=== PATIENT | male | born 1995 | race Caucasian/White ===

== ENCOUNTER 2022-05-23 14:34 | Emergency (ER) | payer OTHER, SELFPAY ==
[2022-05-23 14:35] VITALS: BP 149/82; PULSE 75; RESP 18; TEMP 36.7; O2SAT 98; BMI 26.8
[2022-05-23] MEDS: diazePAM 5 MG Tablet PO (15:20)
[2022-05-23] MEDS: Ketorolac 60 MG/2 ML Vial IM (15:20)
--- NOTE | 2022-05-23 16:14 | EDS_ITS ---
HPI History of Present Illness Chief Complaint: Other, Pain/Inj Narrative Narrative: )26-year-old male who denies significant past medical history presents with pain spinal and trapezial area. He states he awoke this morning without difficulty, but went back to bed, sleeping on 1 pillow. He rested for an additional 30 minutes, but when he woke up he had pain on the right side of his neck into his right trapezial area. He denies any direct trauma to the area. No fevers or chills. Pain is worse with movement especially with his head turning to the right. No paresthesias of his arms or legs, no loss of bowel or bladder. He presents because of the pain on the right side of his neck. He denies other symptoms. [facility] Medical History (Updated 05/23/22 @ 16:41 by Koffi Donaldson MD) HTN (hypertension) Migraines Home Medications citalopram 10 mg tablet 20 tab PO DAILY 01/20/20 [History Last Taken Unknown] methylprednisolone 4 mg tablets in a dose pack (Medrol (Terry)) See Rx Instructions PO PER PKG DIR #21 tabs 01/20/20 [Rx Last Taken Unknown] cyclobenzaprine 10 mg tablet 10 mg PO TID PRN muscle spasm #20 tabs 05/23/22 [Rx Last Taken Unknown] diclofenac sodium 75 mg tablet,delayed release 75 mg PO BID PRN pain #20 tabs 05/23/22 [Rx Last Taken Unknown] Allergy/AdvReac Type Severity Reaction Status Date / Time mold Allergy Unknown Verified 05/23/22 14:36 pollen Allergy Unknown Uncoded 05/23/22 14:36 Family History Other Diabetes Hypercholesterolemia Hypertension Social History Smoking Status: Never smoker alcohol intake: current alcohol intake frequency: a few times a week ROS ROS ED ROS Narrative Constitutional: No fever, no chills. HEENT: No sore throat. Right-sided paraspinal neck pain radiating into his right trapezius. No loss of vision. No rhinorrhea. Cardiovascular: No chest pain. No palpitations. No pedal edema. Respiratory: No cough, no shortness of breath. Abdominal: No abdominal pain. No nausea. No vomiting. Genitourinary: No dysuria. No hematuria. Musculoskeletal: No myalgias. No arthralgias. Neurologic: No headaches. No dizziness. No lightheadedness. Skin: No rash. No change in color. Psychiatric: No depression. No anxiety. EXAM Physical Exam Narrative Exam Narrative: Afebrile. Vital signs noted. HEENT: Normocephalic. Atraumatic. PERRL, EOMI. Neck soft and supple. No point tenderness or step off. Mild tenderness to palpation right paraspinal muscles and right trapezius. Full range of motion of right shoulder. Cardiovascular: Regular rate and rhythm. No murmurs, rubs, or gallops appreciated. Respiratory: No tachypnea. Lungs clear to auscultation bilaterally. Gastrointestinal: Abdomen soft, nontender, with normoactive bowel sounds. No rebound or guarding. Neurological: Awake. Alert. Nonfocal, nonlateralizing. Skin: No rash. Normal color. No pallor. Musculoskeletal: No pedal edema. Full range of motion extremities. Const Vital Signs: 05/23/22 14:35 05/23/22 15:19 Temperature 98.1 F Temperature Source Temporal Pulse Rate 75 Respiratory Rate 18 Respiratory Effort Normal Non-Labored Respiratory Pattern Normal Blood Pressure 149/82 H Blood Pressure Mean 104 Pulse Ox 98 Oxygen Delivery Method Room Air MDM MDM MDM Narrative Medical decision making narrative: I do not feel x-rays are indicated. I feel that the patient has more of a torticollis. He was administered oral Valium 5 mg, and Toradol 60 mg intramuscularly. Upon repeat examination he is improved, he states he can move his neck more. I will write him prescriptions for diclofenac and for Flexeril. He will use heat and ice alternatively. He will follow-up with his primary care physician. I feel he can be discharged safely home with follow-up. Return instructions were reviewed. Disposition is discharged home in improved and stable condition. Discharge Plan Triage Chief Complaint: Other, Pain/Inj ED Provider: Koffi Donaldson Dx/Rx/DC Orders Clinical Impression: Acute cervical myofascial strain, Torticollis, Strain of right trapezius muscle Instructions: Torticollis ([place]), ED Neck Sprain or Strain Prescriptions: New cyclobenzaprine 10 mg tablet 10 mg PO TID PRN (Reason: muscle spasm) Qty: 20 0RF diclofenac sodium 75 mg tablet,delayed release (DR/EC) 75 mg PO BID PRN (Reason: pain) Qty: 20 0RF No Action citalopram 10 mg tablet 20 tab PO DAILY methylprednisolone [Medrol (Terry)] 4 mg tablets,dose pack See Rx Instructions PO PER PKG DIR Qty: 21 0RF Rx Instructions: PO PER PKG DIR Primary Care Provider: Mariposa Christianson Referrals: Mariposa Christianson, [facility] [employer] [Primary Care Provider] - 3-5 Days if not improving Disposition Disposition: Home, Self Care
[2022-05-23 16:51] VITALS: BP 124/86
== END 2022-05-23 16:51 | disposition home or self-care (01) ==
PROVIDERS: Emergency Provider Emergency Medicine; PCP Nurse Practitioner Family; Visit Provider Emergency Medicine
DX: S16.1XXA Strain of muscle, fascia and tendon at neck level, initial encounter (principal); S46.812A Strain of other muscles, fascia and tendons at shoulder and upper arm level, left arm, initial encounter; M43.6 Torticollis; I10 Essential (primary) hypertension; R51.9 Headache, unspecified; Z79.899 Other long term (current) drug therapy; X50.1XXA Overexertion from prolonged static or awkward postures, initial encounter
CPT/HCPCS: 99282